=== PATIENT | male | born 1970 | race Caucasian/White ===

== ENCOUNTER → 2017-12-30 08:35 | Outpatient (CLI) | payer OTHER, SELFPAY ==
--- NOTE | 2017-12-30 08:45 | XR_ITS ---
XR ankle LT min 3V, XR tibia fibula LT 2V Ordering Physician: Mj Boyd MD Patient Age: 47 years: Male HISTORY: ITS.REASON: HX ORIF LT ANKLE, INCREASED PAIN Left ankle pain left lower leg pain TECHNIQUE: Left ankle: 3 views Left lower le views COMPARISON : December 2009 left ankle ===== LEFT ANKLE: 3 VIEWS Extensive ORIF ankle fracture seen today as well as 2009. Likely trimalleolar ORIF . There have been definite progressive arthritic changes at a more narrowed ankle mortise, sclerosis is seen about this tibial talar joint no focal osteochondral defects at dome of talus but narrowing and sclerosis are clearly evident. There is slight additional hypertrophic lipping about the margins of the tibia reflecting the arthritic changes here as well. We again see the long metallic plate at the distal fibula secured by multiple screws. However there is a subtle nondisplaced fracture at the midportion of this metallic plate reflecting motion here. The bone does not appear to be fractured offset but there is some additional thickening of the cortex here which appears chronic in nature about this area which is most likely chronic in nature from old healed fracture. Nonetheless this warrants orthopedic follow-up. At the medial malleolus are 2 long screws securing the fragmentation at the tip of the medial malleolus. This is stable. There is also a metallic plate applied to the medial aspect of the distal metaphysis. 4 long screws here appear stable and unchanged. There is a short metallic plate seen PICC line I believe posterior the region of the posterior malleolus. This appears stable. LEFT LOWER LE VIEWS The subtle transverse fracture at the midportion of the distal fibular metallic plate is again noted. Warrants orthopedic follow-up. Other features discussed below including arthritic changes developing at the ankle joint mortise with irregularly most evident at the distal tibia subarticular region on these views. The mid and proximal tibia, fibula are otherwise unremarkable. IMPRESSION 1. Extensive ORIF of likely trimalleolar fracture again evident. 2. Progressive ARTHRITIC CHANGES ankle mortise have developed since 2009. Narrowing, sclerosis (& subtle subchondral irregularity distal tibia) , now seen about this progressively more arthritic appearing ankle joint 3. Although majority of metallic fixation elements appears stable since 2009 there is note of a now a subtle transverse METALLIC FATIGUE FRACTURE at the midportion long metallic plate applied to the DISTAL FIBULA.. Nondisplaced but evident. Other some mild thickening of cortex about this region from the old healed fracture. But I do not see a new fracture of the bone associated. This feature Warrants orthopedic follow-up
== END ==
PROVIDERS: PCP Family Medicine; Visit Provider Family Medicine
DX: M25.572 Pain in left ankle and joints of left foot (principal); M79.662 Pain in left lower leg
CPT/HCPCS: 73590; 73610

== ENCOUNTER → 2018-02-02 11:14 | Outpatient (CLI) | payer OTHER, SELFPAY ==
--- NOTE | 2018-02-02 11:19 | XR_ITS ---
EXAM: XR lumbar spine min 4V HISTORY: ITS.REASON: RT LOW BACK PAIN ORDERING PHYSICIAN: Mj Boyd MD PATIENT AGE: 47 years COMPARISON: None FINDINGS: Normal alignment. No fracture or dislocation. No lytic or blastic change. There is slight decrease in the disc space at L5-S1 Small age or osteophytes are present involving the lumbar spine. There are DJD changes in lower thoracic spine with slight decrease in height of T12 nonspecific. A small calcific density measuring 3 mm overlies the superior aspect of the left SI joint. This is nonspecific and may be vascular. A ureteral stone is additional consideration. IMPRESSION: 1. Mild degenerative changes with mild degenerative disc disease at L5-S1 and in the lower thoracic spine. 2. Nonspecific calcification overlying the left SI joint superiorly
== END ==
PROVIDERS: PCP Family Medicine; Visit Provider Family Medicine
DX: M54.5 Low back pain (principal)
CPT/HCPCS: 72110

== ENCOUNTER → 2020-02-08 10:12 | Outpatient (CLI) | payer OTHER, SELFPAY ==
--- NOTE | 2020-02-08 10:17 | XR_ITS ---
PROCEDURE: XR ANKLE LT MIN 3V CLINICAL INDICATION: PAIN IN L ANKLE COMPARISON: [facility] XR ankle LT min 3V from 12/30/2017 FINDINGS: There is no significant soft tissue swelling. The lung metallic fibular plate is again noted fixated by multiple threaded screws. The nondisplaced fracture through the metallic plate midportions again seen. The the distal fibular fracture appears well healed. The metallic side plate along the distal medial tibia is again noted with multiple cores only threaded screws fixating the plate to the tibia. The oblique threaded screws are seen in the medial malleolus. There is mild sclerosis of the tibial talar articulation as noted previously. Mild generalized narrowing of ankle mortise is noted unchanged from the previous exam. IMPRESSION: Stable ORIF trimalleolar fracture with basically stable arthritic changes of the tibial talar articulation Dictated by: Dr. Sebastian Kumar MD 02/08/2020 10:[address] Sebastian Kumar MD in [place] 02/08/2020 10:39
== END ==
PROVIDERS: PCP Family Medicine; Visit Provider Family Medicine
DX: M25.572 Pain in left ankle and joints of left foot (principal)
CPT/HCPCS: 73610

== ENCOUNTER → 2021-11-13 13:58 | Outpatient (CLI) | payer OTHER, SELFPAY ==
--- NOTE | 2021-11-13 14:01 | CA_ITS ---
APPROVED REPORT EXAM: Comprehensive 2D, Doppler, and color-flow Echocardiogram Regrinder: Lin He RT(R) Ht: 5 ft 6 in Wt: 220lbs BSA: 2.08 BP: 154/84 mmHg Indications: CP, fatigue, smoker, HTN, family history of HD, AHN. 2D Dimensions Aortic Root 2.16 cm M: 3.1 - 3.7 LA Volume 14.30 mL LA Volume Index 6.87 mL/m2 (M/F) 16-34 M-Mode Dimensions RVDd 2.64 cm (0.9-2.6) LA Diam 2.70 cm (1.9-4.0) LVDd 5.53 cm (3.5-5.7) Ao Diam 2.95 cm (2.0-3.7) LVDs 4.20 cm (3.5-5.7) IVSd 0.88 cm (0.6-1.1) PWd 1.08 cm (0.6-1.1) EF (Teich) 47.40% FS 24.10% EDV (Teich) 149.30 mL ESV (Teich) 78.60 mL LV Diastology E Decel Time 220.00 (160-240 msec) E/A Ratio 0.8 MED E' 6.80 (< 7 cm/sec) E'/MED E' Ratio 8.00 (>14) LAT E' 10.10 (<10 cm/sec) E/LAT E' Ratio 5.39 (>14) Mitral Valve MV E Max Terrance. 54.00 (40-130 cm/s) MV A Velocity 70.00 (40-130 cm/s) E/A Ratio 0.77 MV Decel. Time 220.00 (160-240 ms) MV PHT 64.00 ms Left Ventricle Left atrium is mildly enlarged, left ventricle is normal size, mild concentric left ventricular hypertrophy, estimated ejection fraction 55% with no regional wall motion abnormality, grade 1 diastolic dysfunction seen without tissue Doppler evidence of raise left atrial pressure. Right Ventricle Right atrium and right ventricle are normal size and contractility. Aortic Valve Aortic valve is minimally thickened and fibrosed, there is no aortic stenosis or aortic insufficiency. Mitral Valve Mitral valve grossly normal, there is trace mitral regurgitation. Tricuspid Valve Tricuspid valve grossly normal, there is trace tricuspid regurgitation, tricuspid regurgitation jet velocity is inadequate for calculation of the right ventricular systolic pressure. Pulmonic Valve Pulmonic valve is poorly visualized. Great Vessels Aortic root is normal size. Inferior vena cava is normal size with normal contractility. Pericardium No significant pericardial effusion noted. Conclusion 1. Mildly enlarged left atrium, normal left ventricular size, mild concentric left ventricular hypertrophy, estimated ejection fraction 55% with no regional wall motion abnormality, grade 1 diastolic dysfunction seen without tissue Doppler evidence of raise left atrial pressure. 2. Trace mitral and tricuspid regurgitation. 3. No significant pericardial effusion. 4. Inferior vena cava is normal size with normal inspiratory collapse. Electronically signed by : Kemar Rizzo MD 11/13/2021 15:22:43
== END ==
PROVIDERS: PCP Family Medicine; Visit Provider Nurse Practitioner
DX: R07.9 Chest pain, unspecified (principal)
CPT/HCPCS: 93306

== ENCOUNTER → 2022-05-20 14:33 | Outpatient (CLI) | payer OTHER, SELFPAY ==
[2022-05-20 18:31] LABS: Alanine Aminotransferase 40 U/L (12-78); Albumin Level 3.9 g/dl (3.5-5.0); Albumin/Globulin Ratio 1.5 (1.1-1.8); Alkaline Phosphatase 165 U/L (38-126); Anion Gap 16.1 mEq/L (5-15); Aspartate Amino Transferase 48 U/L (17-59); Bilirubin,Total 0.3 mg/dl (0.2-1.3); Blood Urea Nitrogen 14 mg/dl (9-20); Calcium 8.8 mg/dl (8.4-10.2); Carbon Dioxide 26 mmol/L (22.0-30.0); Chloride 102 mmol/L (98-107); Chol/HDL Ratio 4.8 (1-3.5); Cholesterol 120 mg/dl (140-200); Estimated Glomerular Filt Rate 89 ml/min (>60); GFR (African American) 108 ML/MIN (>60); Globulin 2.6 g/dL (1.3-3.2); Glucose 139 mg/dl (74-100); HDL Cholesterol 25 mg/dl (40-60); Potassium 4.1 mmoL/L (3.5-5.1); Sodium 140 mmol/L (136-145); Total Protein,Serum 6.5 g/dl (6.3-8.2); Triglycerides 229 mg/dl (30-150); VLDL Cholesterol 46 mg/dL (0-40)
[2022-05-20 18:42] LABS: Direct LDL Cholesterol 63.85 mg/dL (100-129)
== END ==
PROVIDERS: PCP Nurse Practitioner; Visit Provider Nurse Practitioner
DX: I10 Essential (primary) hypertension (principal); E78.5 Hyperlipidemia, unspecified
CPT/HCPCS: 80053; 80061